=== PATIENT | male | born 1935 | race Caucasian/White ===

== ENCOUNTER 2017-03-16 10:26 | Inpatient (IN) | payer OTHER, MEDICARE ==
[2017-03-16] MEDS ORDERED: Sodium Chloride 0.9% 1,000 ML IV ONE (11:16)
[2017-03-16] MEDS: Sodium Chloride 0.9% 10 ML Syringe FLUSH PRN ×2 (11:29→13:00)
[2017-03-16] MEDS ORDERED: Pantoprazole 40 MG Vial IVPUSH ONE ×2 (12:00→14:11)
[2017-03-16] MEDS ORDERED: Sodium Chloride 0.9% 80 ML IV SCH (12:45)
[2017-03-16] MEDS ORDERED: Iopamidol 612 MG/ML 150 ML Bottle IV SCH (12:45)
[2017-03-16] MEDS ORDERED: Sodium Chloride 0.9% 10 ML Syringe FLUSH PRN ×2 (14:12→15:38)
[2017-03-16] MEDS ORDERED: Sodium Chloride 0.9% 1,000 ML IV SCH (14:15)
[2017-03-16] MEDS ORDERED: Sodium Chloride 0.9% 100 ML with Pantoprazole 80 MG IV SCH ×6 (14:15→15:38)
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
--- NOTE | 2017-03-16 15:23 | PCM.HP ---
H&P History of Present Illness - General Date of Service: 03/16/17 Admit Problem/Dx: Admission Diagnosis/Problem Admission Diagnosis/Problem Bleeding Source of Information: Patient, Provider, RN Notes Reviewed History Limitations: Reports: No Limitations - History of Present Illness Initial Comments - Free Text/Narative: Mr. Shannon is an 81-year-old gentleman who is admitted through the emergency department with probable upper GI bleed. 2 days ago he first noted melenic stools, he describes the stool is mainly black with small amounts of more red or maroon blood. Yesterday had a large melenic stool and then experience several smaller melenic stools this morning. Associated with this he has been weak and lightheaded. There've been no symptoms of abdominal pain, nausea, or vomiting. On evaluation in the emergency department hemoglobin is above 12 and he has been hemodynamically stable. - Related Data Allergies/Adverse Reactions: Allergies Allergy/AdvReac Type Severity Reaction Status Date / Time No Known Allergies Allergy Verified 05/09/16 10:40 Home Medications: Home Meds Metoprolol Tartrate [Lopressor] 12.5 mg PO BID 04/09/16 [History] Sildenafil Citrate [Viagra] 50 mg PO ASDIRECTED PRN 04/09/16 [History] Aspirin/Calcium Carbonate/Mag [Aspirin Buffered 325 mg Tab] 325 mg PO .2XWEEK [History] Past Medical History - Past Health History Medical/Surgical History: Denies Medical/Surgical History HEENT History: Reports: None Cardiovascular History: Reports: Afib, Arrhythmia, Hypertension, SOB on Exertion Respiratory History: Reports: SOB Musculoskeletal History: Reports: Arthritis, Back Pain, Chronic Neurological History: Reports: TIA Dermatologic History: Reports: None - Infectious Disease History Infectious Disease History: Reports: Chicken Pox, Influenza, Measles, Mumps, Scarlet Fever - Past Surgical History Head Surgeries/Procedures: Reports: None HEENT Surgical History: Reports: Other (See Below) Respiratory Surgical History: Reports: None Neurological Surgical History: Reports: None Musculoskeletal Surgical History: Reports: Arthroscopic Procedure Dermatological Surgical History: Reports: Other (See Below) Social & Family History - Family History Family Medical History: Noncontributory - Tobacco Use Smoking Status *Q: Never Smoker Years of Tobacco use: 35 Packs/Tins Daily: 3 Used Tobacco, but Quit: Yes Month Tobacco Last Used: 10/1989 Second Hand Smoke Exposure: Yes - Alcohol Use Days Per Week of Alcohol Use: 0 (occasional) - Recreational Drug Use Recreational Drug Use: No H&P Review of Systems - Review of Systems: Review Of Systems: See Below General: Reports: Weakness. Denies: Fever, Chills HEENT: Reports: No Symptoms Pulmonary: Reports: No Symptoms Cardiovascular: Reports: Lightheadedness. Denies: Chest Pain, Palpitations, Dyspnea on Exertion, Orthopnea, PND, Edema, Syncope Gastrointestinal: Reports: Decreased Appetite, Melena. Denies: Abdominal Pain, Constipation, Diarrhea, Difficulty Swallowing, Distension, Flatus, Hematemesis, Hematochezia, Nausea, Vomiting Genitourinary: Reports: No Symptoms Musculoskeletal: Reports: No Symptoms Skin: Reports: No Symptoms Psychiatric: Reports: No Symptoms Neurological: Reports: No Symptoms Hematologic/Lymphatic: Reports: No Symptoms Immunologic: Reports: No Symptoms Exam - Exam Exam: See Below - Vital Signs Vital Signs: Last Vital Signs Temp 97.8 F 03/16/17 10:57 Pulse 69 03/16/17 14:36 Resp 15 03/16/17 14:36 BP 148/98 H 03/16/17 14:36 Pulse Ox 69 L 03/16/17 14:36 Weight: 308 lb - Exam Quality Assessment: DVT Prophylaxis General: Alert, Oriented, Cooperative, Mild Distress HEENT: Conjunctiva Clear, Mucosa Moist & [place], Posterior Pharynx Clear, Pupils Equal Neck: Supple, Trachea Midline, +2 Carotid Pulse wo Bruit Lungs: Clear to Auscultation, Normal Respiratory Effort Cardiovascular: Regular Rate, Regular Rhythm, Normal S1, Normal S2. No: Systolic Murmur, Diastolic Murmur Abdomen: Normal Bowel Sounds, Soft Back Exam: Normal Inspection, Full Range of Motion, NT Extremities: 3, Normal Inspection, 10 Skin: Warm, Dry, Intact Neurological: Cranial Nerves Intact, Strength Equal Bilateral Neuro Extensive - Mental Status: Alert, Oriented x3, Normal Mood/Affect, Normal Cognition - Patient Data Lab Results Last 24 hrs: Laboratory Results - last 24 hr 03/16/17 03/16/17 03/16/17 Range/Units 11:25 11:25 11:25 WBC 6.8 (4.5-11.0) K/uL RBC 3.68 L (4.30-5.90) M/uL Hgb 11.7 L D (12.0-15.0) g/dL Hct 34.1 L (40.0-54.0) % MCV 93 (80-98) fL MCH 32 H (27-31) pg MCHC 34 (32-36) % Plt Count 211 (150-400) K/uL Neut % (Auto) 49 (36-66) % Lymph % (Auto) 34 (24-44) % [place] % (Auto) 11 H (2-6) % Eos % (Auto) 6 H (2-4) % Baso % (Auto) 1 (0-1) % PT (9.5-12.0) sec INR (0.80-1.20) APTT (27.0-36.0) sec Sodium 140 (140-148) mmol/L Potassium 4.3 (3.6-5.2) mmol/L Chloride 108 (100-108) mmol/L Carbon Dioxide 25 (21-32) mmol/L Anion Gap 6.9 (5.0-14.0) mmol/L BUN 34 H D (7-18) mg/dL Creatinine 1.3 (0.8-1.3) mg/dL Est Cr Clr Drug Dosing 45.86 mL/min Estimated GFR (MDRD) 53 L (>60) Glucose 124 H (74-106) mg/dL Calcium 8.6 (8.5-10.1) mg/dL Total Bilirubin 0.4 (0.2-1.0) mg/dL AST 20 (15-37) U/L ALT 17 (12-78) U/L Alkaline Phosphatase 81 (46-116) U/L Total Protein 6.4 (6.4-8.2) g/dL Albumin 3.3 L (3.4-5.0) g/dL Globulin 3.1 (2.3-3.5) g/dL Albumin/Globulin Ratio 1.1 L (1.2-2.2) TSH, Ultra Sensitive 1.705 (0.358-3.740) uIU/mL 03/16/17 Range/Units 14:23 WBC (4.5-11.0) K/uL RBC (4.30-5.90) M/uL Hgb (12.0-15.0) g/dL Hct (40.0-54.0) % MCV (80-98) fL MCH (27-31) pg MCHC (32-36) % Plt Count (150-400) K/uL Neut % (Auto) (36-66) % Lymph % (Auto) (24-44) % [place] % (Auto) (2-6) % Eos % (Auto) (2-4) % Baso % (Auto) (0-1) % PT 10.8 (9.5-12.0) sec INR 1.01 (0.80-1.20) APTT 26.4 L (27.0-36.0) sec Sodium (140-148) mmol/L Potassium (3.6-5.2) mmol/L Chloride (100-108) mmol/L Carbon Dioxide (21-32) mmol/L Anion Gap (5.0-14.0) mmol/L BUN (7-18) mg/dL Creatinine (0.8-1.3) mg/dL Est Cr Clr Drug Dosing mL/min Estimated GFR (MDRD) (>60) Glucose (74-106) mg/dL Calcium (8.5-10.1) mg/dL Total Bilirubin (0.2-1.0) mg/dL AST (15-37) U/L ALT (12-78) U/L Alkaline Phosphatase (46-116) U/L Total Protein (6.4-8.2) g/dL Albumin (3.4-5.0) g/dL Globulin (2.3-3.5) g/dL Albumin/Globulin Ratio (1.2-2.2) TSH, Ultra Sensitive (0.358-3.740) uIU/mL Result Diagrams: 03/16/17 11:25 03/16/17 11:25 Nestor Results Last 24 hrs: Microbiology 03/16/17 11:50 Stool Occult Blood (NESTOR) - Final Stool / Feces *Q Meaningful Use (ADM) - VTE *Q VTE Criteria *Q: VTE Pharmacological Contraindications *Q: Active Hemorrhage - VTE Risk Assess *Q Each Risk Factor Represents 1 Point: None Total Score 1 Point Risk Factors: 0 Each Risk Factor Represents 2 Points: Morbid Obesity (BMI Greater than 40) Total Score 2 Point Risk Factors: 2 Each Risk Factor Represents 3 Points: Age 75 Years or Greater Total Score 3 Point Risk Factors: 3 Each Risk Factor Represents 5 Points: None Total Score 5 Point Risk Factors: 0 Venous Thromboembolism Risk Factor Score *Q: 5 - Stroke *Q Stroke Criteria *Q: - AMI *Q AMI Criteria *Q: Problem List Initiated/Reviewed/Updated: Yes Orders Last 24hrs: Active Orders 24 hr Category Date Time Status Patient Status Manage Transfer [TRANSFER] Routine ADT 03/16/17 14:53 Active Peripheral IV Care [RC] . DIRECTED Care 03/16/17 11:15 Active Peripheral IV Care [RC] . DIRECTED Care 03/16/17 14:12 Active Abdomen Pelvis w Cont [CT] Stat Exams 03/16/17 12:19 Taken HGB [HEMOGLOBIN] [HEME] Stat Lab 03/16/17 23:00 Ordered RED BLOOD CELLS LP [BBK] Stat Lab 03/16/17 14:20 Received TYPE AND SCREEN [BBK] Stat Lab 03/16/17 14:20 Received Sodium Chloride 0.9% [Normal Saline] 1,000 ml Med 03/16/17 14:15 Active IV ASDIRECTED Sodium Chloride 0.9% [Normal Saline] 100 ml Med 03/16/17 14:30 Active Pantoprazole [ProTONIX IV] 80 mg IV 10 mls/hr Sodium Chloride 0.9% [Saline Flush] Med 03/16/17 11:15 Active 10 ml FLUSH ASDIRECTED PRN Sodium Chloride 0.9% [Saline Flush] Med 03/16/17 14:12 Active 10 ml FLUSH ASDIRECTED PRN Peripheral IV Insertion Adult [OM.PC] Routine Oth 03/16/17 11:15 Ordered Peripheral IV Insertion Adult [OM.PC] Routine Oth 03/16/17 14:12 Ordered Resuscitation Status Routine Resus Stat 03/16/17 14:54 Ordered Medication Orders Sodium Chloride (Normal Saline) 1,000 mls @ 125 mls/hr IV ASDIRECTED AVE Last Admin: 03/16/17 14:43 Dose: 125 mls/hr Pantoprazole Sodium 80 mg/ (Sodium Chloride) 100 mls @ 10 mls/hr IV .Q10H AVE Last Admin: 03/16/17 14:44 Dose: 10 mls/hr Sodium Chloride (Saline Flush) 10 ml FLUSH ASDIRECTED PRN PRN Reason: Keep Vein Open Last Admin: 03/16/17 13:00 Dose: 10 ml Admin: 03/16/17 11:29 Dose: 10 ml Sodium Chloride (Saline Flush) 10 ml FLUSH ASDIRECTED PRN PRN Reason: Keep Vein Open Assessment/Plan Comment:: ASSESSMENT AND PLAN UPPER GI BLEED-history of melenic stool over the past 2 days with symptoms of weakness and lightheadedness as well as decrease in appetite. He is been using nonsteroidal therapy over the past 3 weeks, denies significant epigastric pain nausea or vomiting. Initial hemoglobin is greater than 12 -Clear liquid diet -Nothing by mouth after midnight -IV fluids for hydration -Maintain 2 IV sites -Received 80 mg of Protonix IV in the emergency department -Continuous infusion of Protonix 8 mg per hour -Type and cross to hold 2 units of red blood cells -Consult Dr. Nguyễn for EGD in a.m. -If EGD is unremarkable we'll need to consider further evaluation with colonoscopy HISTORY OF SVT-hemodynamically stable with no evidence of tachycardia -Continue beta viola therapy SLEEP APNEA-he's been feeling very tired sleeps easily during the day, does have a previous diagnosis of sleep apnea but felt he was unable to tolerate the CPAP -Recommend follow-up with primary care after hospitalization to discuss another trial of CPAP MAINTENANCE ISSUES -DVT prophylaxis; SCUDs, will not use anticoagulation because of active bleeding -GI prophylaxis; Protonix as above -Miller catheter; not indicated -Nutrition; clear liquid diet, nothing by mouth after midnight -Nicotine dependence; not required CODE STATUS-FULL CODE ADMISSION STATUS-patient will be admitted to inpatient status, expect at least a 2 night hospital stay for evaluation and management of problems as outlined above. At the time of this admission I do not reasonably expected evaluation and management of this problem will require more than a 96 hour hospital stay. DISPOSITION-anticipate discharge to home after the hospital stay. PRIMARY CARE PROVIDER-Luz Marina Walker
[2017-03-16] MEDS ORDERED: Ondansetron 4 MG/2 ML SDV IV PRN (15:38)
[2017-03-16] MEDS ORDERED: oxyCODONE 5 MG Tab PO PRN (15:38)
[2017-03-16] MEDS ORDERED: Acetaminophen 325 MG Tab PO PRN (15:38)
[2017-03-16] MEDS: Pantoprazole 80 MG in Sodium Chloride 0.9% 100 ML IV SCH (16:00)
[2017-03-16] MEDS: Metoprolol Tartrate 25 MG Tab PO SCH (20:34)
[2017-03-17] MEDS: Pantoprazole 80 MG in Sodium Chloride 0.9% 100 ML IV SCH ×2 (00:05→03:08)
[2017-03-17] MEDS: Sodium Chloride 0.9% 1,000 ML IV SCH ×2 (03:07→10:21)
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
[2017-03-17] MEDS ORDERED: Propofol 200 MG/20 ML SDV ONE (07:08)
[2017-03-17] MEDS: Metoprolol Tartrate 25 MG Tab PO SCH ×2 (08:36→20:08)
[2017-03-17] MEDS ORDERED: Pantoprazole 80 MG in Sodium Chloride 0.9% 100 ML IV SCH (10:00)
--- NOTE | 2017-03-17 14:11 | PCM.PN ---
- General Info Date of Service: 03/17/17 Functional Status: Reports: pain controlled, tolerating diet - Review of Systems General: Denies: Weakness Cardiovascular: Denies: Chest Pain Gastrointestinal: Reports: Abdominal pain (mild epigastric pain). Denies: Melena, Vomiting Systems Review Comment:: No acute events overnight. No hematemesis or melena. Hemoglobin with slight decline. No significant abdominal pain today. EGD showed gastritis and esophagitis. He has not had any fevers. Tolerated full liquids shortly after his procedure. - Patient Data Vitals - most recent: Last Vital Signs Temp 36.2 C 03/17/17 10:39 Pulse 55 L 03/17/17 10:39 Resp 18 03/17/17 10:39 BP 164/70 H 03/17/17 10:39 Pulse Ox 98 03/17/17 10:39 Weight - most recent: 139.706 kg I&O - last 24 hours: Intake & Output 03/16/17 03/17/17 03/17/17 22:59 06:59 14:59 Intake Total 1650 1159 2170 Output Total 825 600 500 Balance 579 503 9511 Lab Results last 24 hrs: Laboratory Results - last 24 hr 03/16/17 03/16/17 03/17/17 Range/Units 17:04 23:00 05:58 WBC 4.6 (4.5-11.0) K/uL RBC 3.11 L (4.30-5.90) M/uL Hgb 11.5 L 10.3 L 10.2 L (12.0-15.0) g/dL Hct 29.2 L (40.0-54.0) % MCV 94 (80-98) fL MCH 33 H (27-31) pg MCHC 35 (32-36) % Plt Count 154 (150-400) K/uL Neut % (Auto) 47 (36-66) % Lymph % (Auto) 35 (24-44) % [place] % (Auto) 9 H (2-6) % Eos % (Auto) 8 H (2-4) % Baso % (Auto) 1 (0-1) % Sodium (140-148) mmol/L Potassium (3.6-5.2) mmol/L Chloride (100-108) mmol/L Carbon Dioxide (21-32) mmol/L Anion Gap (5.0-14.0) mmol/L BUN (7-18) mg/dL Creatinine (0.8-1.3) mg/dL Est Cr Clr Drug Dosing mL/min Estimated GFR (MDRD) (>60) Glucose (74-106) mg/dL Calcium (8.5-10.1) mg/dL 03/17/17 Range/Units 05:58 WBC (4.5-11.0) K/uL RBC (4.30-5.90) M/uL Hgb (12.0-15.0) g/dL Hct (40.0-54.0) % MCV (80-98) fL MCH (27-31) pg MCHC (32-36) % Plt Count (150-400) K/uL Neut % (Auto) (36-66) % Lymph % (Auto) (24-44) % [place] % (Auto) (2-6) % Eos % (Auto) (2-4) % Baso % (Auto) (0-1) % Sodium 138 L (140-148) mmol/L Potassium 4.2 (3.6-5.2) mmol/L Chloride 109 H (100-108) mmol/L Carbon Dioxide 24 (21-32) mmol/L Anion Gap 9.2 (5.0-14.0) mmol/L BUN 21 H (7-18) mg/dL Creatinine 1.1 (0.8-1.3) mg/dL Est Cr Clr Drug Dosing 53.97 mL/min Estimated GFR (MDRD) > 60 (>60) Glucose 122 H (74-106) mg/dL Calcium 8.0 L (8.5-10.1) mg/dL Med Orders - Current: Current Medications Acetaminophen (Tylenol) 650 mg PO Q4H PRN PRN Reason: Pain (Mild 1-3)/fever Metoprolol Tartrate (Lopressor) 12.5 mg PO BID [facility] Last Admin: 03/17/17 08:36 Dose: 12.5 mg Ondansetron HCl (Zofran) 4 mg IV Q4H PRN PRN Reason: Nausea/Vomiting Oxycodone HCl (Oxycodone) 5 mg PO Q4H PRN PRN Reason: Pain (moderate 4-6) Pantoprazole Sodium (Protonix) [address] Sodium Chloride (Saline Flush) 10 ml FLUSH ASDIRECTED PRN PRN Reason: Keep Vein Open Discontinued Medications Glycopyrrolate () Confirm Administered Dose 1 mg .ROUTE .STK-MED ONE Stop: 03/17/17 07:20 Sodium Chloride (Normal Saline) 1,000 mls @ 999 mls/hr IV .BOLUS ONE Stop: 03/16/17 12:16 Last Admin: 03/16/17 11:29 Dose: 999 mls/hr Sodium Chloride (Normal Saline) 80 mls @ 3 mls/sec IV ASDIRECTED AVE Stop: 03/16/17 13:30 Last Admin: 03/16/17 13:00 Dose: 3 mls/sec Sodium Chloride (Normal Saline) 1,000 mls @ 125 mls/hr IV ASDIRECTED [facility] Last Admin: 03/16/17 14:43 Dose: 125 mls/hr Pantoprazole Sodium 80 mg/ (Sodium Chloride) 100 mls @ 10 mls/hr IV .Q10H [facility] Last Admin: 03/16/17 14:44 Dose: 10 mls/hr Sodium Chloride (Normal Saline) 1,000 mls @ 125 mls/hr IV ASDIRECTED [facility] Last Admin: 03/17/17 10:21 Dose: 125 mls/hr Pantoprazole Sodium 80 mg/ (Sodium Chloride) 100 mls @ 10 mls/hr IV Q10H [facility] Last Admin: 03/17/17 03:08 Dose: Not Given Pantoprazole Sodium 80 mg/ (Sodium Chloride) 100 mls @ 10 mls/hr IV Q10H [facility] Last Admin: 03/17/17 11:01 Dose: Not Given Iopamidol (Isovue-300 (61%)) 150 ml IV . DIRECTED [facility] Stop: 03/16/17 13:30 Last Admin: 03/16/17 12:59 Dose: 150 ml Pantoprazole Sodium (Protonix Iv) 40 mg IVPUSH ONETIME ONE Stop: 03/16/17 12:01 Last Admin: 03/16/17 13:15 Dose: 40 mg Pantoprazole Sodium (Protonix Iv) 40 mg IVPUSH ONETIME ONE Stop: 03/16/17 14:12 Last Admin: 03/16/17 14:45 Dose: 40 mg Propofol (Diprivan 20 Ml) Confirm Administered Dose 200 mg .ROUTE .STK-MED ONE Stop: 03/17/17 07:09 Sodium Chloride (Saline Flush) 10 ml FLUSH ASDIRECTED PRN PRN Reason: Keep Vein Open Last Admin: 03/16/17 13:00 Dose: 10 ml Sodium Chloride (Saline Flush) 10 ml FLUSH ASDIRECTED PRN PRN Reason: Keep Vein Open - Exam Quality Assessment: No: supplemental oxygen General: alert, oriented, cooperative, no acute distress Neck: supple Lungs: Normal respiratory effort Cardiovascular: Regular Rate, Regular Rhythm Abdomen: soft, no distension, tenderness (mild epigastric) Extremities: no edema, no cyanosis Skin: warm, dry Psy/Mental Status: alert, normal affect - Problem List Review Problem List Initiated/Reviewed/Updated: Yes - My Orders Last 24 Hours: My Active Orders 03/17/17 14:07 Convert IV to Saline Lock [OM.PC] Routine 03/17/17 16:30 Pantoprazole [ProTONIX] 40 mg PO BIDAC 03/17/17 Lunch Mechanical Soft Diet [DIET] 03/18/17 05:00 HGB [HEMOGLOBIN] [HEME] Timed - Plan Plan:: ASSESSMENT AND PLAN GASTRITIS AND ESOPHAGITIS - EGD showed gastritis and esophagitis, this could explain his blood loss. Hemoglobin with only mild decline. Hemodynamically he is stable. -Advance diet -Saline lock IV -Maintain 2 IV sites -Twice-daily proton pump inhibitor -Hemoglobin in the morning -Type and cross to hold 2 units of red blood cells HISTORY OF SVT - hemodynamically stable with no evidence of tachycardia -Continue beta viola therapy SLEEP APNEA - he's been feeling very tired sleeps easily during the day, does have a previous diagnosis of sleep apnea but felt he was unable to tolerate the CPAP -Recommend follow-up with primary care after hospitalization to discuss another trial of CPAP MAINTENANCE ISSUES -DVT prophylaxis; SCUDs, will not use anticoagulation because of active bleeding -GI prophylaxis; PPI as above -Miller catheter; not indicated -Nutrition; ADAT DISPOSITION - anticipate discharge to home after the hospital stay, possibly tomorrow if stable overnight Bethel Bryan M.D.
[2017-03-17] MEDS: Pantoprazole 40 MG Tab.CR PO SCH (16:03)
[2017-03-18] MEDS: Pantoprazole 40 MG Tab.CR PO SCH (07:35)
[2017-03-18] MEDS: Metoprolol Tartrate 25 MG Tab PO SCH (08:02)
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
[2017-03-18 10:55] VITALS: BP 178/71
--- NOTE | 2017-03-19 10:10 | PN ---
DATE OF SERVICE: 03/18/2017 The patient has been clinically stable with no signs of any further bleeding. He will likely be discharged home later today. Additionally, he was noted to have his heart rate dip into the 40s, but no significant symptomatic tachycardia has been noted. He will be discharged likely per the hospitalist later today. Aravind Nguyễn MD /[id number]
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
== END 2017-03-18 12:30 | disposition home or self-care (01) | DRG 379 ==
LOC: JP.ED 10:26 → JP.MS 14:53
PROVIDERS: ADMIT Hospitalist; ATTEND Internal Medicine
PROC: 0DB68ZX Excision of Stomach, Via Natural or Artificial Opening Endoscopic, Diagnostic (ICD-10-PCS; principal; 2017-03-17)
DX: K29.71 Gastritis, unspecified, with bleeding (principal); K20.9 Esophagitis, unspecified; B96.81 Helicobacter pylori [H. pylori] as the cause of diseases classified elsewhere; I10 Essential (primary) hypertension; Z86.73 Personal history of transient ischemic attack (TIA), and cerebral infarction without residual deficits; Z87.891 Personal history of nicotine dependence; Z79.82 Long term (current) use of aspirin; G47.30 Sleep apnea, unspecified; Z85.828 Personal history of other malignant neoplasm of skin
CPT/HCPCS: 36415; 74177; 80048; 80053; 82272; 84443; 85018; 85025; 85610; 85730; 86850; 86900; 86901; 86920; 86922; 87081; 93005; 96361; 96374; 96375; 96376; 99283-25; 99284; A9270-GY; C9113; J2704; J7030; J7040; J7050

== ENCOUNTER 2018-01-05 17:29 | Emergency (ER) | payer MEDICARE ==
[2018-01-05] MEDS ORDERED: Sodium Chloride 0.9% 10 ML Syringe FLUSH PRN (17:46)
[2018-01-05] MEDS ORDERED: Aspirin 81 MG Tab.Chew PO ONE (17:50)
--- NOTE | 2018-01-05 17:56 | EDM.PDOC ---
<Luis Philip G - Last Filed: 01/05/18 17:51> ED HPI GENERAL MEDICAL PROBLEM - General Chief Complaint: Chest Pain Stated Complaint: SOB CHEST PAINS Time Seen by Provider: 01/05/18 17:45 Source of Information: Reports: Patient, Old Records, RN History Limitations: Reports: No Limitations - History of Present Illness INITIAL COMMENTS - FREE TEXT/NARRATIVE: 82 yo male presents with onset around noon today of mild chest pain(aching). Is slightly light-headed. Didn't take his metoprolol today until early afternoon. Has not taken his aspirin for quite awhile. No nausea, SOB, or diaphoresis. Is unaware of tachycardia. Has not felt like this in the past. 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) (none) - Related Data Allergies Allergy/AdvReac Type Severity Reaction Status Date / Time No Known Allergies Allergy Verified 01/05/18 22:17 Home Meds: Home Meds Metoprolol Tartrate [Lopressor] 12.5 mg PO BID 04/09/16 [History] Past Medical History - Past Health History Medical/Surgical History: Denies Medical/Surgical History HEENT History: Reports: None Cardiovascular History: Reports: Afib, Arrhythmia, Hypertension, SOB on Exertion Respiratory History: Reports: SOB Musculoskeletal History: Reports: Arthritis, Back Pain, Chronic Neurological History: Reports: TIA Psychiatric History: Reports: Anxiety Oncologic (Cancer) History: Reports: Other (See Below) Other Oncologic History: removed precancerous spot behind one ear, rechecked and no cancer noted, pt unknown to name of cancer or which ear. Dermatologic History: Reports: None - Infectious Disease History Infectious Disease History: Reports: Chicken Pox, Influenza, Measles, Mumps, Scarlet Fever - Past Surgical History Head Surgeries/Procedures: Reports: None HEENT Surgical History: Reports: Other (See Below) Respiratory Surgical History: Reports: None Neurological Surgical History: Reports: None Musculoskeletal Surgical History: Reports: Arthroscopic Procedure Dermatological Surgical History: Reports: Other (See Below) Social & Family History - Family History Family Medical History: Noncontributory - Tobacco Use Smoking Status *Q: Never Smoker Years of Tobacco use: 35 Packs/Tins Daily: 3 Used Tobacco, but Quit: Yes Month/Year Tobacco Last Used: 10/1989 Second Hand Smoke Exposure: Yes - Caffeine Use Caffeine Use: Reports: Coffee - Alcohol Use Days Per Week of Alcohol Use: 0 (occasional) - Recreational Drug Use Recreational Drug Use: No ED ROS GENERAL - Review of Systems Review Of Systems: See Below Constitutional: Reports: No Symptoms HEENT: Reports: No Symptoms Respiratory: Reports: No Symptoms Cardiovascular: Reports: Chest Pain, Edema (legs bilat-chronic) Endocrine: Reports: No Symptoms GI/Abdominal: Reports: No Symptoms : Reports: No Symptoms Musculoskeletal: Reports: No Symptoms Skin: Reports: No Symptoms Neurological: Reports: No Symptoms Psychiatric: Reports: No Symptoms ED EXAM, GENERAL - Physical Exam Exam: See Below Exam Limited By: No Limitations General Appearance: Alert, WD/WN, No Apparent Distress, Obese Eye Exam: Bilateral Eye: Normal Inspection Ears: Normal External Exam, Normal Canal, Hearing Grossly Normal, Normal TMs Ear Exam: Bilateral Ear: Auricle Normal, Canal Normal, TM normal Nose: Normal Inspection, Normal Mucosa, No Blood Throat/Mouth: Normal Inspection, Normal Lips, Normal Oropharynx, Normal Voice, No Airway Compromise Head: Atraumatic, Normocephalic Neck: Normal Inspection, Supple Respiratory/Chest: No Respiratory Distress, Lungs Clear, Normal Breath Sounds Cardiovascular: Tachycardia GI/Abdominal: Normal Bowel Sounds, Soft, Non-Tender, Other (Obese) Extremities: Pedal Edema (both legs below the knees) Neurological: Alert, Oriented, CN II-XII Intact, Normal Cognition, No Motor/ Sensory Deficits Psychiatric: Normal Affect, Normal Mood Skin Exam: Warm, Dry, Intact, Normal Color Lymphatic: No Adenopathy EKG INTERPRETATION EKG Date: 01/05/18 Time: 17:40 Rhythm: A-Flutter Rate (Beats/Min): 151 [place]: Normal P-Wave: Absent QRS: RBBB ST-T: Depressed QT: Prolonged Comparison: Change From Previous EKG Course - Vital Signs Last Recorded V/S: Last Vital Signs Temp 97.5 F 01/05/18 17:49 Pulse 141 H 01/05/18 21:21 Resp 21 H 04/23/18 21:21 BP 113/77 01/05/18 21:31 Pulse Ox 93 L 01/05/18 21:21 - Orders/Labs/Meds Orders: Active Orders 24 hr Category Date Time Status Cardiac Monitoring [RC] .As Directed Care 01/05/18 17:45 Active EKG Documentation Completion [RC] ASDIRECTED Care 01/05/18 17:46 Active EKG Documentation Completion [RC] ASDIRECTED Care 01/05/18 21:47 Active Chest 1V Frontal [CR] Urgent Exams 01/05/18 18:22 Taken UA W/MICROSCOPIC [URIN] Stat Lab 01/05/18 17:50 Ordered Sodium Chloride 0.9% [Saline Flush] Med 01/05/18 17:46 Active 10 ml FLUSH ASDIRECTED PRN Saline Lock Insert [OM.PC] Routine Oth 01/05/18 17:46 Ordered EKG 12 Lead [EK] Routine Ther 01/05/18 17:45 Ordered EKG 12 Lead [EK] Stat Ther 01/05/18 21:47 Ordered Medication Orders Sodium Chloride (Saline Flush) 10 ml FLUSH ASDIRECTED PRN PRN Reason: Keep Vein Open Last Admin: 01/05/18 19:26 Dose: 10 ml Labs: Laboratory Tests 01/05/18 01/05/18 01/05/18 Range/Units 16:58 16:58 18:18 WBC 6.1 (4.5-11.0) K/uL RBC 4.39 (4.30-5.90) M/uL Hgb 14.2 D (12.0-15.0) g/dL Hct 40.4 (40.0-54.0) % MCV 92 (80-98) fL MCH 32 H (27-31) pg MCHC 35 (32-36) % Plt Count 184 (150-400) K/uL PT (9.5-12.0) sec INR (0.80-1.20) APTT 28.9 (27.0-36.0) sec Sodium 139 L (140-148) mmol/L Potassium 4.4 (3.6-5.2) mmol/L Chloride 102 (100-108) mmol/L Carbon Dioxide 28 (21-32) mmol/L Anion Gap 13.4 (5.0-14.0) mmol/L BUN 21 H (7-18) mg/dL Creatinine 1.2 (0.8-1.3) mg/dL Est Cr Clr Drug Dosing 48.81 mL/min Estimated GFR (MDRD) 58 L (>60) Glucose 149 H (74-106) mg/dL Calcium 8.9 (8.5-10.1) mg/dL Troponin I < 0.017 (0.000-0.056) ng/mL TSH, Ultra Sensitive 2.030 (0.358-3.740) uIU/mL 01/05/18 Range/Units 18:18 WBC (4.5-11.0) K/uL RBC (4.30-5.90) M/uL Hgb (12.0-15.0) g/dL Hct (40.0-54.0) % MCV (80-98) fL MCH (27-31) pg MCHC (32-36) % Plt Count (150-400) K/uL PT 10.5 (9.5-12.0) sec INR 0.98 (0.80-1.20) APTT (27.0-36.0) sec Sodium (140-148) mmol/L Potassium (3.6-5.2) mmol/L Chloride (100-108) mmol/L Carbon Dioxide (21-32) mmol/L Anion Gap (5.0-14.0) mmol/L BUN (7-18) mg/dL Creatinine (0.8-1.3) mg/dL Est Cr Clr Drug Dosing mL/min Estimated GFR (MDRD) (>60) Glucose (74-106) mg/dL Calcium (8.5-10.1) mg/dL Troponin I (0.000-0.056) ng/mL TSH, Ultra Sensitive (0.358-3.740) uIU/mL Meds: Medications Generic Name Dose Route Start Last Admin Trade Name Freq PRN Reason Stop Dose Admin Sodium Chloride 10 ml 01/05/18 17:46 01/05/18 19:26 Saline Flush FLUSH 10 ml ASDIRECTED PRN Administration Keep Vein Open Discontinued Medications Generic Name Dose Route Start Last Admin Trade Name Freq PRN Reason Stop Dose Admin Amiodarone HCl 300 mg 01/05/18 20:22 01/05/18 21:31 Cordarone IVPUSH 01/05/18 20:23 Not Given ONETIME ONE Protocol Aspirin 324 mg 01/05/18 17:50 01/05/18 18:08 Aspirin PO 01/05/18 17:51 324 mg ONETIME ONE Administration Diltiazem HCl 60 mg 01/05/18 19:09 01/05/18 19:22 Cardizem PO 01/05/18 19:10 60 mg ONETIME ONE Administration Metoprolol Tartrate 5 mg/ 55 mls @ 100 mls/hr 01/05/18 17:59 01/05/18 19:16 Sodium Chloride IV 01/05/18 18:31 Not Given ONETIME ONE Amiodarone HCl/Dextrose Confirm 01/05/18 20:51 01/05/18 20:58 Nexterone In Dextrose 150 Mg/100 Ml Administered 01/05/18 20:52 100 mls/hr Dose Administration 200 mls @ as directed IV .STK-MED ONE Metoprolol Tartrate 5 mg 01/05/18 18:05 01/05/18 18:10 Lopressor IVPUSH 01/05/18 18:06 5 mg ONETIME ONE Administration Metoprolol Tartrate 5 mg 01/05/18 18:14 01/05/18 18:20 Lopressor IVPUSH 01/05/18 18:15 5 mg ONETIME ONE Administration Departure - Departure Disposition: Home, Self-Care 01 Clinical Impression: Paroxysmal atrial fibrillation Referrals: PCP,None [Primary Care Provider] - Forms: ED Department Discharge Additional Instructions: Start a baby aspirin 1 tablet per day, resume your regular dose of metoprolol, please follow-up with your primary care provider in the next 3-5 days for reevaluation - My Orders Last 24 Hours: My Active Orders 01/05/18 18:22 Chest 1V Frontal [CR] Urgent 01/05/18 21:47 EKG Documentation Completion [RC] ASDIRECTED EKG 12 Lead [EK] Stat - Assessment/Plan Last 24 Hours: My Active Orders 01/05/18 18:22 Chest 1V Frontal [CR] Urgent 01/05/18 21:47 EKG Documentation Completion [RC] ASDIRECTED EKG 12 Lead [EK] Stat <GabrielarCollin - Last Filed: 01/05/18 22:24> ED HPI GENERAL MEDICAL PROBLEM - History of Present Illness INITIAL COMMENTS - FREE TEXT/NARRATIVE: he is unsure of when his palpitations began chest pain started around noon today , he does admit to being in poor compliance with his medication Departure - Departure Time of Disposition: 22:24 Condition: Fair - Assessment/Plan Plan: Assessment Acuity = acute Site and laterality = paroxysmal atrial fibrillation status post conversion sinus rhythm Etiology = probably secondary to medicine compliance Manifestations = none Location of injury = Home Lab values = troponin was negative TSH euthymic at 2.03 EKG initially demonstrated atrial fibrillation 140s 150s, repeat EKG demonstrates sinus rhythm in the 50s Plan Trial of metoprolol IV was initiated with minimal results, next a trial of Cardizem by mouth 60 mg also with minimal results, 150 mg amiodarone IV push did convert him to sinus rhythm. I reviewed with him the importance of taking his daily metoprolol talk to him about his risk of stroke as his chads score is elevated at around 5, he is not interested in starting any new medications at this time, he agreed to take his metoprolol and he agreed to start a baby aspirin follow-up with his primary care in the next 3-5 days for reevaluation This note was dictated using [employer] voice recognition software please call with any questions on syntax or michelle.
[2018-01-05] MEDS ORDERED: Metoprolol Tartrate 5 MG in Sodium Chloride 0.9% 50 ML IV ONE (17:59)
[2018-01-05] MEDS ORDERED: Metoprolol Tartrate 5 MG/5 ML SDV IVPUSH ONE ×2 (18:05→18:14)
[2018-01-05] MEDS ORDERED: Diltiazem IR 30 MG Tab PO ONE (19:09)
[2018-01-05] MEDS ORDERED: Amiodarone 150 MG/3 ML SDV IVPUSH ONE (20:22)
[2018-01-05] MEDS: Amiodarone In Dextrose,Iso-Osm 200 ML IV ONE ×2 (20:58→22:26)
[2018-01-05 22:28] VITALS: BP 126/92
--- NOTE | 2018-01-06 08:33 | CR ---
Chest 1V Frontal HISTORY: cp COMPARISON: 01/10/2014 FINDINGS: Portable chest, 1827 hours. Lungs appear clear and normally aerated. Mild cardiomegaly is noted. No vascular redistribution or pl eural fluid can be seen. Bony structures and soft tissues are unremarkable. IMPRESSION: Mild cardiomegaly without evidence for decompensation. No other acute chest abnormality is identified .
== END 2018-01-05 22:39 | disposition home or self-care (01) ==
LOC: JP.ED 17:29
DX: I48.0 Paroxysmal atrial fibrillation (principal); I10 Essential (primary) hypertension; Z79.899 Other long term (current) drug therapy; Z87.891 Personal history of nicotine dependence
CPT/HCPCS: 36415; 71045; 80048; 84443; 84484; 85027; 85610; 85730; 93005; 96374; 99285; A9270; J0282; J7050; J3490

== ENCOUNTER 2021-01-02 17:21 | Emergency (ER) | payer MEDICARE ==
[2021-01-02] MEDS ORDERED: Acetaminophen 325 MG Tab PO ONE (18:12)
--- NOTE | 2021-01-02 18:22 | EDM.PDOC ---
ED HPI GENERAL MEDICAL PROBLEM - General Chief Complaint: Lower Extremity Injury/Pain Stated Complaint: HEEL PAIN Time Seen by Provider: 01/02/21 18:08 Source of Information: Reports: Patient, Family, RN Notes Reviewed History Limitations: Reports: No Limitations - History of Present Illness INITIAL COMMENTS - FREE TEXT/NARRATIVE: 85-year-old gentleman presents emergency department with a complaint of heel pain, he states the pain he has had for some time but today it got significantly worse to the point where he cannot bear weight. Left Feet Pain Score (Numeric/FACES): 9 - Related Data Allergies Allergy/AdvReac Type Severity Reaction Status Date / Time No Known Allergies Allergy Verified 01/02/21 17:54 Home Meds: Home Meds Furosemide [Lasix] 20 mg PO DAILY #30 tab 01/02/21 [Rx] predniSONE [Prednisone] 20 mg PO DAILY #5 tablet 01/02/21 [Rx] Past Medical History HEENT History: Reports: Cataract Other HEENT History: pseudophakia Cardiovascular History: Reports: Afib, Arrhythmia, Heart Failure, Hypertension, SOB on Exertion, Other (See Below) Other Cardiovascular History: SVT Respiratory History: Reports: SOB Gastrointestinal History: Reports: GI Bleed Genitourinary History: Reports: Chronic Renal Insuffiency Other Genitourinary History: stage 3 Musculoskeletal History: Reports: Arthritis, Back Pain, Chronic Neurological History: Reports: TIA Psychiatric History: Reports: Anxiety Endocrine/Metabolic History: Reports: Obesity/BMI 30+ Oncologic (Cancer) History: Reports: Other (See Below) Other Oncologic History: removed precancerous spot behind one ear, rechecked and no cancer noted, pt unknown to name of cancer or which ear. Dermatologic History: Reports: None - Infectious Disease History Infectious Disease History: Reports: Chicken Pox, Influenza, Measles, Mumps, Scarlet Fever - Past Surgical History Head Surgeries/Procedures: Reports: None HEENT Surgical History: Reports: Cataract Surgery, Other (See Below) Other HEENT Surgeries/Procedures: removal of metal from eye Cardiovascular Surgical History: Reports: None Respiratory Surgical History: Reports: None GI Surgical History: Reports: EGD Male Surgical History: Reports: Circumcision Neurological Surgical History: Reports: None Musculoskeletal Surgical History: Reports: Arthroscopic Procedure Other Musculoskeletal Surgeries/Procedures:: bilateral knee scope Oncologic Surgical History: Reports: None Dermatological Surgical History: Reports: Other (See Below) Social & Family History - Family History Family Medical History: No Pertinent Family History - Tobacco Use Tobacco Use Status *Q: Former Tobacco User Used Tobacco, but Quit: Yes Month/Year Tobacco Last Used: 1989 - Caffeine Use Caffeine Use: Reports: Coffee - Recreational Drug Use Recreational Drug Use: No Review of Systems - Review of Systems Review Of Systems: See Below Constitutional: Reports: No Symptoms Respiratory: Reports: No Symptoms Cardiovascular: Reports: No Symptoms GI/Abdominal: Reports: No Symptoms Musculoskeletal: Reports: Foot Pain Skin: Reports: No Symptoms Neurological: Reports: No Symptoms ED EXAM, GENERAL - Physical Exam Exam: See Below Free Text/Narrative:: Examination of the left foot I do not appreciate any erythema does have above +3 pitting edema bilaterally pedal pulses +2 he is tender both anterior and posteriorly around the calcaneus and on appreciate any breaks in the skin Course - Vital Signs Last Recorded V/S: Last Vital Signs Temp 96.9 F 01/02/21 17:50 Pulse 60 01/02/21 18:22 Resp 18 01/02/21 17:50 BP 182/67 H 01/02/21 18:22 Pulse Ox 96 01/02/21 17:50 - Orders/Labs/Meds Orders: Active Orders 24 hr Category Date Time Status Calcaneous Lt [CR] Stat Exams 01/02/21 18:11 Taken Meds: Medications Discontinued Medications Generic Name Dose Route Start Last Admin Trade Name Krysta PRN Reason Stop Dose Admin Acetaminophen 650 mg 01/02/21 18:12 01/02/21 18:42 Acetaminophen 325 Mg Tab PO 01/02/21 18:13 650 mg NOW ONE Administration Departure - Departure Time of Disposition: 18:58 Disposition: Home, Self-Care 01 Condition: Fair Clinical Impression: Plantar fasciitis of left foot - Discharge Information Prescriptions: Furosemide [Lasix] 20 mg PO DAILY #30 tab predniSONE [Prednisone] 20 mg PO DAILY #5 tablet Instructions: Plantar Fasciitis Referrals: PCP,None [Primary Care Provider] - Forms: ED Department Discharge Additional Instructions: Try the prednisone as an anti-inflammatory for the next 5 days, continue to use Tylenol as needed for pain control, try the Lasix 1 tablet once a day this will increase your urination but hopefully reduce the edema in your legs please follow-up with your primary care in the next 3 to 5 days for reevaluation call return to the emergency department worsening symptoms Sepsis Event Note (ED) - Evaluation Sepsis Screening Result: No Definite Risk - Focused Exam Vital Signs: Vital Signs Temp Pulse Resp BP Pulse Ox 01/02/21 18:22 60 182/67 H 01/02/21 17:50 96.9 F 38 L 18 205/73 H 96 01/02/21 17:45 96.9 F 38 L 18 205/73 H 96 - My Orders Last 24 Hours: My Active Orders 01/02/21 18:11 Calcaneous Lt [CR] Stat - Assessment/Plan Last 24 Hours: My Active Orders 01/02/21 18:11 Calcaneous Lt [CR] Stat Plan: Assessment Acuity = acute Site and laterality = plantar fasciitis Etiology = unknown Manifestations = heel pain Location of injury = Home Lab values = plain x-ray of the foot reveals no fracture official read radiologist pending Plan Get some relief from the Tylenol provided in the emergency department prescription written for prednisone 20 mg once a day x5 days also he does have an extensive heart history with leg edema we will try Lasix 20 mg once a day will follow up with his primary care in the next 3 to 5 days for reevaluation medications faxed to [facility] pharmacy This note was dictated using [employer] voice recognition software please call with any questions on syntax or grammar.
[2021-01-02 18:23] VITALS: BP 182/67; PULSE 60
--- NOTE | 2021-01-03 09:04 | CR ---
Calcaneous Lt CLINICAL HISTORY: Pain COMPARISON: None FINDINGS: Bone alignment is anatomic. Bone mineralization is adequate. No acute fracture identified. Surrounding soft tissues are swollen. There is spurring at the Achilles insertion. There is also some inferior calcaneal spurring IMPRESSION: Soft tissue swelling No fracture seen Calcaneal spurs
== END 2021-01-02 19:20 | disposition home or self-care (01) ==
LOC: JP.ED 17:21
DX: M72.2 Plantar fascial fibromatosis (principal); I48.91 Unspecified atrial fibrillation; I13.0 Hypertensive heart and chronic kidney disease with heart failure and stage 1 through stage 4 chronic kidney disease, or unspecified chronic kidney disease; N18.9 Chronic kidney disease, unspecified; I50.9 Heart failure, unspecified; E66.9 Obesity, unspecified; Z68.41 Body mass index [BMI] 40.0-44.9, adult; Z87.891 Personal history of nicotine dependence; Z79.899 Other long term (current) drug therapy
CPT/HCPCS: 73650-26-LT; 73650-LT; 99282; 99283-25; A9270-GY

== ENCOUNTER 2021-04-07 20:17 | Emergency (ER) | payer MEDICARE ==
[2021-04-07 20:27] VITALS: PULSE 77
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
[2021-04-07] MEDS ORDERED: amLODIPine 5 MG Tab PO ONE (20:57)
[2021-04-07 21:04] VITALS: BP 163/54
== END 2021-04-07 21:58 | disposition home or self-care (01) ==
LOC: JP.ED 20:17
DX: I13.0 Hypertensive heart and chronic kidney disease with heart failure and stage 1 through stage 4 chronic kidney disease, or unspecified chronic kidney disease (principal); N18.30 Chronic kidney disease, stage 3 unspecified; I50.9 Heart failure, unspecified; I48.91 Unspecified atrial fibrillation; E66.9 Obesity, unspecified; Z68.42 Body mass index [BMI] 45.0-49.9, adult; Z87.891 Personal history of nicotine dependence
CPT/HCPCS: 36415; 80048; 99283; A9270

== ENCOUNTER 2021-04-13 12:34 | Emergency (ER) | payer MEDICARE ==
[2021-04-13] MEDS ORDERED: Acetaminophen/oxyCODONE 325-5 MG Tab PO STA (12:53)
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
[2021-04-13 13:28] VITALS: BP 173/52; PULSE 78
--- NOTE | 2021-04-13 13:47 | CRLCR ---
For Patients: As a result of the Cures Act, medical imaging exams and procedure reports are released immediately into your electronic medical record. You may view this report before your referring provider. If you have questions, please contact your health care provider. Indication: Direct injury, Pain Comparison: None available. Technique: Standing AP, lateral, and sunrise views bright knee were obtained Findings: There is no displaced fracture or dislocation. There is prior total knee arthroplasty without evidence of hardware loosening. There is mild superficial soft tissue swelling. Impression: Mild superficial soft tissue swelling without evidence of displaced fracture or hardware failure. Dictated by Conor Hinkle MD @ 04/13/2021 1:45:[address] Conor Hinkle @ Apr 13 2021 1:45PM
--- NOTE | 2021-04-13 13:49 | CRLCR ---
For Patients: As a result of the Cures Act, medical imaging exams and procedure reports are released immediately into your electronic medical record. You may view this report before your referring provider. If you have questions, please contact your health care provider. Indication: Patient fell onto shoulder Technique: Three views right shoulder Comparison: None Findings: Bones: Alignment is normal. No fractures or bone lesions. Joint spaces: Moderate to severe degenerative changes in the glenohumeral and acromioclavicular joints. Soft tissues: Unremarkable. Impression: No acute abnormality. Dictated by Susan Salazar MD @ 04/13/2021 1:47:[address] Susan Salazar @ Apr 13 2021 1:47PM
== END 2021-04-13 14:20 | disposition home or self-care (01) ==
LOC: JP.ED 12:34
DX: S40.011A Contusion of right shoulder, initial encounter (principal); S80.01XA Contusion of right knee, initial encounter; R00.8 Other abnormalities of heart beat; I48.91 Unspecified atrial fibrillation; I13.0 Hypertensive heart and chronic kidney disease with heart failure and stage 1 through stage 4 chronic kidney disease, or unspecified chronic kidney disease; N18.30 Chronic kidney disease, stage 3 unspecified; I50.9 Heart failure, unspecified; E66.9 Obesity, unspecified; Z68.41 Body mass index [BMI] 40.0-44.9, adult; Z79.899 Other long term (current) drug therapy; W18.30XA Fall on same level, unspecified, initial encounter
CPT/HCPCS: 36415; 73030; 73562; 80048; 83735; 93005; 99284; A9270

== ENCOUNTER 2021-10-03 13:55 | Emergency (ER) | payer MEDICARE ==
[2021-10-03 14:58] VITALS: BP 178/51; PULSE 56
[2021-10-03 15:12] LABS: CORONAVIRUS COVID-19 NAA NEGATIVE (NEGATIVE)
== END 2021-10-03 16:24 | disposition home or self-care (01) ==
LOC: JP.ED 13:55
DX: R07.89 Other chest pain (principal); I10 Essential (primary) hypertension; E66.9 Obesity, unspecified; Z68.43 Body mass index [BMI] 50.0-59.9, adult; Z79.82 Long term (current) use of aspirin; Z79.899 Other long term (current) drug therapy; Z86.73 Personal history of transient ischemic attack (TIA), and cerebral infarction without residual deficits; Z87.891 Personal history of nicotine dependence; Z20.822 Contact with and (suspected) exposure to COVID-19
CPT/HCPCS: 0241U; 36415; 80048; 84484; 85025; 99285

== ENCOUNTER 2022-05-16 12:15 | Inpatient (IN) | payer MEDICARE ==
[2022-05-16] MEDS ORDERED: Sodium Chloride 0.9% 10 ML Syringe FLUSH PRN (12:19)
[2022-05-16] MEDS ORDERED: Pantoprazole 40 MG Vial IVPUSH ONE (12:24)
[2022-05-16] MEDS ORDERED: Acetaminophen 500 MG Tab PO ONE (13:37)
[2022-05-16] MEDS ORDERED: Albuterol 8 GM Inhaler INH PRN (15:10)
[2022-05-16] MEDS ORDERED: 50% Dextrose in Water 50 ML Syringe IV PRN (16:16)
[2022-05-16] MEDS ORDERED: Ondansetron 4 MG/2 ML SDV IV PRN (16:16)
[2022-05-16] MEDS ORDERED: Ondansetron 4 MG Tab.DIS PO PRN (16:16)
[2022-05-16] MEDS ORDERED: oxyCODONE 5 MG Tab PO PRN (16:16)
[2022-05-16] MEDS ORDERED: Glucose Gel 15 GM in 37.5 GM Tube PO PRN (16:16)
[2022-05-16] MEDS ORDERED: Acetaminophen 325 MG Tab PO PRN (16:16)
[2022-05-16] MEDS: Dexamethasone 4 MG/ML SDV IVPUSH SCH (16:54)
[2022-05-16] MEDS ORDERED: REMDESIVIR 200 MG in Sodium Chloride 0.9% 250 ML IV ONE (17:00)
[2022-05-16] MEDS: Insulin Lispro 100 Unit/ML 3 ML KwikPen SUBCUT SCH ×2 (17:39→21:54)
[2022-05-16] MEDS ORDERED: Enoxaparin 30 MG/0.3 ML Syringe SUBCUT SCH (21:00)
[2022-05-17] MEDS ORDERED: Benzocaine/Cetylpyridinium/Menthol Lozenge MUCMEM PRN (04:08)
[2022-05-17 06:34] LABS: ESTIMATED GFR 48 mL/min (>60)
[2022-05-17] MEDS: Insulin Lispro 100 Unit/ML 3 ML KwikPen SUBCUT SCH ×4 (08:06→20:54)
[2022-05-17] MEDS: Pantoprazole 40 MG Tab.CR PO SCH (08:07)
[2022-05-17] MEDS ORDERED: Pantoprazole 40 MG Tab.CR PO SCH (09:00)
[2022-05-17 09:40] LABS: HEMOGLOBIN A1C 7.7 % (4.5-6.2)
[2022-05-17] MEDS: Dexamethasone 4 MG/ML SDV IVPUSH SCH (17:03)
[2022-05-17] MEDS: REMDESIVIR 100 MG in Sodium Chloride 0.9% 100 ML IV SCH (17:03)
[2022-05-17] MEDS: Enoxaparin 40 MG/0.4 ML Syringe SUBCUT SCH (20:49)
[2022-05-18 06:24] LABS: ESTIMATED GFR 53 mL/min (>60)
[2022-05-18] MEDS: Pantoprazole 40 MG Tab.CR PO SCH (08:26)
[2022-05-18] MEDS: Insulin Lispro 100 Unit/ML 3 ML KwikPen SUBCUT SCH ×4 (08:26→21:33)
[2022-05-18] MEDS: Dexamethasone 4 MG/ML SDV IVPUSH SCH (16:26)
[2022-05-18] MEDS: REMDESIVIR 100 MG in Sodium Chloride 0.9% 100 ML IV SCH (16:28)
[2022-05-18] MEDS: Enoxaparin 40 MG/0.4 ML Syringe SUBCUT SCH (20:03)
[2022-05-19] MEDS: Insulin Lispro 100 Unit/ML 3 ML KwikPen SUBCUT SCH ×2 (07:58→11:59)
[2022-05-19] MEDS: Pantoprazole 40 MG Tab.CR PO SCH (08:01)
[2022-05-19 12:10] VITALS: BP 140/77; PULSE 58
== END 2022-05-19 14:10 | disposition home or self-care (01) | DRG 177 ==
LOC: JP.ED 12:15 → JP.MS 14:54
PROVIDERS: ADMIT Hospitalist; ATTEND Hospitalist
PROC: XW033E5 Introduction of Remdesivir Anti-infective into Peripheral Vein, Percutaneous Approach, New Technology Group 5 (ICD-10-PCS; principal; 2022-05-16)
PROC: 3E0333Z Introduction of Anti-inflammatory into Peripheral Vein, Percutaneous Approach (ICD-10-PCS; 2022-05-16)
DX: U07.1 COVID-19 (principal); J12.82 Pneumonia due to coronavirus disease 2019; I13.0 Hypertensive heart and chronic kidney disease with heart failure and stage 1 through stage 4 chronic kidney disease, or unspecified chronic kidney disease; I50.32 Chronic diastolic (congestive) heart failure; K92.1 Melena; R53.1 Weakness; R09.02 Hypoxemia; N18.31 Chronic kidney disease, stage 3a; E11.22 Type 2 diabetes mellitus with diabetic chronic kidney disease; Z28.310 Unvaccinated for COVID-19; M19.90 Unspecified osteoarthritis, unspecified site; F41.9 Anxiety disorder, unspecified; Z96.659 Presence of unspecified artificial knee joint; I48.91 Unspecified atrial fibrillation; Z79.82 Long term (current) use of aspirin; Z79.899 Other long term (current) drug therapy; Z86.73 Personal history of transient ischemic attack (TIA), and cerebral infarction without residual deficits; Z98.49 Cataract extraction status, unspecified eye; Z87.891 Personal history of nicotine dependence
CPT/HCPCS: 36415; 71045; 80048; 80076; 83605; 83880; 84145; 85025; 85610; 85730; 86850; 86900; 86901; 94640; A9270; C9113; J3490; U0002; 80053; 81001; 82248; 82947; 83036; 83735; 85379; 86140; 87086; 97162-GP; 97530-GP; 97535-GP; J1100; J1650; J1815; J7050

== ENCOUNTER 2022-09-23 01:42 | Emergency (ER) | payer MEDICARE ==
[2022-09-23 02:30] LABS: ESTIMATED GFR 45 mL/min (>60); TROPONIN I HIGH SENSITIVITY 8.8 pg/mL (<=60.3)
[2022-09-23 05:45] VITALS: BP 143/66; PULSE 66
== END 2022-09-23 05:59 | disposition home or self-care (01) ==
LOC: JP.ED 01:42
DX: R07.89 Other chest pain (principal); I48.91 Unspecified atrial fibrillation; E78.00 Pure hypercholesterolemia, unspecified; I13.0 Hypertensive heart and chronic kidney disease with heart failure and stage 1 through stage 4 chronic kidney disease, or unspecified chronic kidney disease; N18.30 Chronic kidney disease, stage 3 unspecified; I50.9 Heart failure, unspecified; E66.9 Obesity, unspecified; Z68.42 Body mass index [BMI] 45.0-49.9, adult; Z79.82 Long term (current) use of aspirin; Z79.84 Long term (current) use of oral hypoglycemic drugs; Z79.899 Other long term (current) drug therapy; Z86.73 Personal history of transient ischemic attack (TIA), and cerebral infarction without residual deficits
CPT/HCPCS: 36415; 71045; 80053; 84484; 85025; 93005; 93010; 99284; 99285

== ENCOUNTER 2023-03-24 07:11 | Emergency (ER) | payer MEDICARE ==
[2023-03-24] MEDS ORDERED: Sodium Chloride 0.9% 10 ML Syringe FLUSH PRN (07:18)
[2023-03-24] MEDS ORDERED: Metoprolol Tartrate 5 MG/5 ML SDV IVPUSH ONE (07:20)
[2023-03-24] MEDS ORDERED: Nitroglycerin 0.4 MG Tab.SL SL ONE (07:23)
[2023-03-24 07:24] LABS: BASOPHILS ABSOLUTE AUTO 0.06 K/uL (0.00-0.10); EOSINOPHILS ABSOLUTE AUTO 0.05 K/uL (0.00-0.40); EOSINOPHILS PERCENT AUTO 0.8 % (0.0-5.4); HEMATOCRIT 40.2 % (38.4-49.7); HEMOGLOBIN 14.2 g/dL (12.9-16.9); IMMATURE GRAN PERCENT AUTO 0.2 % (0.0-0.7); LYMPHOCYTES ABSOLUTE AUTO 2.71 K/uL (0.8-3.3); LYMPHOCYTES PERCENT AUTO 43.9 % (11.4-47.7); MEAN CORPUSCULAR HEMOGLOBIN 32.3 pg (31.6-35.5); MEAN CORPUSCULAR HGB CONC 35.3 g/dL (31.6-35.5); MEAN CORPUSCULAR VOLUME 91.6 fL (81.4-99.0); MONOCYTES ABSOLUTE AUTO 0.87 K/uL (0.20-0.90); MONOCYTES PERCENT AUTO 14.1 % (3.3-12.6); NEUTROPHILS ABSOLUTE AUTO 2.48 K/uL (1.0-7.6); PLATELET COUNT,PLT 199 K/uL (130-375); RED BLOOD CELL COUNT 4.39 M/uL (4.14-5.76); WHITE BLOOD CELL COUNT,WBC 6.2 K/uL (3.2-11.0)
[2023-03-24] MEDS ORDERED: Aspirin 81 MG Tab.Chew PO ONE (07:24)
[2023-03-24 07:25] LABS: IMMATURE GRAN ABSOLUTE AUTO 0.01 K/uL (0.00-0.23)
[2023-03-24] MEDS ORDERED: Sodium Chloride 0.9% 500 ML IV ONE (07:33)
[2023-03-24 07:43] LABS: PROTHROMBIN TIME 10.4 sec (9.2-10.6); PTT,PARTIAL THROMBOPLSTIN TIME 29.9 sec (21.8-27.3)
[2023-03-24 07:56] LABS: CALCIUM 9.1 mg/dL (8.5-10.1); CREATININE 1.5 mg/dL (0.8-1.3); EST CRCL DRUG DOSING (CG) 35.56 mL/min; MAGNESIUM 2.1 mg/dL (1.8-2.4); POTASSIUM,K 4.4 mmol/L (3.6-5.2); T4 FREE 0.89 ng/dL (0.76-1.46); TROPONIN I HIGH SENSITIVITY 16.4 pg/mL (<=60.3); TSH ULTRASENSITIVE 2.362 uIU/mL (0.358-3.740)
[2023-03-24 07:57] LABS: ANION GAP 13.4 mmol/L (5.0-14.0)
[2023-03-24 08:02] VITALS: BP 146/93; PULSE 129
[2023-03-24 09:22] LABS: APPEARANCE,URINE SLIGHTLY CLOUDY (CLEAR); BILIRUBIN,URINE NEGATIVE (NEGATIVE); COLOR,URINE YELLOW (YELLOW); GLUCOSE,URINE NEGATIVE (NEGATIVE); KETONES,URINE NEGATIVE (NEGATIVE); LEUKOCYTE ESTERASE,URINE LARGE (NEGATIVE); NITRITE,URINE NEGATIVE (NEGATIVE); OCCULT BLOOD,URINE TRACE-INTACT (NEGATIVE); PROTEIN,URINE 30 mg/dL (NEGATIVE)
[2023-03-24 09:31] LABS: AMORPHOUS SEDIMENT,URINE NOT SEEN; BACTERIA,URINE MANY; EPITHELIAL CELLS,URINE RARE; MUCUS,URINE NOT SEEN; RBC,URINE 0-5 (0-5); WBC,URINE SEMI-PACKED (0-5)
== END 2023-03-24 10:41 | disposition home or self-care (01) ==
LOC: JP.ED 07:11
DX: R07.89 Other chest pain (principal); R00.0 Tachycardia, unspecified; I13.0 Hypertensive heart and chronic kidney disease with heart failure and stage 1 through stage 4 chronic kidney disease, or unspecified chronic kidney disease; E11.22 Type 2 diabetes mellitus with diabetic chronic kidney disease; N18.31 Chronic kidney disease, stage 3a; I50.9 Heart failure, unspecified; I48.91 Unspecified atrial fibrillation; E78.00 Pure hypercholesterolemia, unspecified; R82.71 Bacteriuria; R82.81 Pyuria; Z86.73 Personal history of transient ischemic attack (TIA), and cerebral infarction without residual deficits; E66.9 Obesity, unspecified; Z79.82 Long term (current) use of aspirin; Z86.16 Personal history of COVID-19; Z68.42 Body mass index [BMI] 45.0-49.9, adult
CPT/HCPCS: 36415; 71045; 80048; 81001; 83735; 83880; 84439; 84443; 84484; 85025; 85379; 85610; 85730; 87086; 93005; 93970; 96374; 99285; A9270; J3490; J7040

== ENCOUNTER 2023-06-25 19:15 | Emergency (ER) | payer MEDICARE ==
[2023-06-25 19:30] LABS: BASOPHILS ABSOLUTE AUTO 0.06 K/uL (0.00-0.10); BASOPHILS PERCENT AUTO 0.8 % (0.1-1.3); EOSINOPHILS ABSOLUTE AUTO 0.05 K/uL (0.00-0.40); EOSINOPHILS PERCENT AUTO 0.7 % (0.0-5.4); HEMATOCRIT 42.6 % (38.4-49.7); HEMOGLOBIN 15.1 g/dL (12.9-16.9); IMMATURE GRAN ABSOLUTE AUTO 0.01 K/uL (0.00-0.23); IMMATURE GRAN PERCENT AUTO 0.1 % (0.0-0.7); LYMPHOCYTES ABSOLUTE AUTO 3.03 K/uL (0.8-3.3); LYMPHOCYTES PERCENT AUTO 40.6 % (11.4-47.7); MEAN CORPUSCULAR HEMOGLOBIN 32.7 pg (31.6-35.5); MEAN CORPUSCULAR HGB CONC 35.4 g/dL (31.6-35.5); MEAN CORPUSCULAR VOLUME 92.2 fL (81.4-99.0); MONOCYTES ABSOLUTE AUTO 0.88 K/uL (0.20-0.90); MONOCYTES PERCENT AUTO 11.8 % (3.3-12.6); NEUTROPHILS ABSOLUTE AUTO 3.44 K/uL (1.0-7.6); PLATELET COUNT,PLT 216 K/uL (130-375); RED BLOOD CELL COUNT 4.62 M/uL (4.14-5.76); WHITE BLOOD CELL COUNT,WBC 7.5 K/uL (3.2-11.0)
[2023-06-25] MEDS: Aspirin 81 MG Tab.Chew PO ONE (19:47)
[2023-06-25] MEDS: Metoprolol Succinate 50 MG Tab.ER PO STA (19:49)
[2023-06-25 19:55] LABS: A/G RATIO 0.9 (1.2-2.2); ALANINE AMINOTRANSFERASE,ALT 19 U/L (12-78); ALBUMIN 3.3 g/dL (3.4-5.0); ALKALINE PHOSPHATASE 88 U/L (46-116); ASPARTATE AMNIOTRANSFERASE,AST 20 U/L (15-37); BILIRUBIN TOTAL 0.6 mg/dL (0.2-1.0); BLOOD UREA NITROGEN,BUN 14 mg/dL (7-18); C-REACTIVE PROTEIN 0.46 mg/dL (0.0-0.3); CALCIUM 8.6 mg/dL (8.5-10.1); CARBON DIOXIDE,CO2 25 mmol/L (21-32); CHLORIDE,CL 102 mmol/L (100-108); CREATININE 1.5 mg/dL (0.8-1.3); ESTIMATED GFR 44 mL/min (>60); GLUCOSE RANDOM 158 mg/dL (74-106); POTASSIUM,K 4.3 mmol/L (3.6-5.2); PRO B-TYPE NATRIUR PEPT,BNPPRO 925 pg/mL (5-450); PROTEIN TOTAL,TP 6.9 g/dL (6.4-8.2); SODIUM,NA 136 mmol/L (140-148); TROPONIN I HIGH SENSITIVITY 38.2 pg/mL (<=60.3)
[2023-06-25 19:56] LABS: ANION GAP 13.3 mmol/L (5.0-14.0)
[2023-06-25 20:53] VITALS: BP 97/53; PULSE 77
== END 2023-06-25 21:17 | disposition home or self-care (01) ==
LOC: JP.ED 19:15
DX: J81.1 Chronic pulmonary edema (principal); R00.0 Tachycardia, unspecified; I50.22 Chronic systolic (congestive) heart failure; E11.22 Type 2 diabetes mellitus with diabetic chronic kidney disease; N18.30 Chronic kidney disease, stage 3 unspecified; Z79.82 Long term (current) use of aspirin; Z79.84 Long term (current) use of oral hypoglycemic drugs
CPT/HCPCS: 36415; 71045; 80053; 83880; 84484; 85025; 85730; 86140; 93005; 99285; A9270